=== PATIENT | female | born 1985 | race Two or more races ===

== ENCOUNTER 2016-10-03 10:21 | Emergency (ER) | payer OTHER ==
[2016-10-03 10:36] VITALS: BP 133/81
--- NOTE | 2016-10-03 11:51 | UC ---
Respiratory Complaint HPI - HPI Summary HPI Summary: SINUS CONGESTION AND COUGH FOR PAST WEEK, WAS SEEN AT [facility] ON Saturday09/28/16, DIAGNOSED WITH UPPER RESPIRATORY INFECTION. PATIENT DENIES ANY IMPROVEMENT IN SYMPTOMS SINCE THEN. PATIENT REQUESTING TEST, TOOK A TEST AT HOME AND AT HOSPITAL LAST WEEK , BOTH POSITIVE. REQUESTING A NOTE STATING SHE IS . - History of Current Complaint Chief Complaint: UCGeneralIllness Stated Complaint: SINUS ISSUE NEEDS PREG TESTING Time Seen by Provider: 10/03/16 11:09 Hx Obtained From: Patient Hx Last Menstrual Period: unknown Onset/Duration: Gradual Onset, Lasting Days, Still Present Timing: Constant Severity Initially: Moderate Severity Currently: Moderate Pain Intensity: 8 Pain Scale Used: 0-10 Numeric - Allergies/Home Medications Allergies/Adverse Reactions: Allergies Allergy/AdvReac Type Severity Reaction Status Date / Time Amoxicillin Allergy Hives/Diff. Verified 10/03/16 10:53 Breathing/I tching Azithromycin [From Zithromax] Allergy Hives/Diff. Verified 10/03/16 10:53 Breathing/I tching Cefaclor [From Ceclor] Allergy Hives/Diff. Verified 10/03/16 10:53 Breathing/I tching Erythromycin Allergy Hives/Diff. Verified 10/03/16 10:53 Breathing/I tching Penicillins [PCN] Allergy Hives/Diff. Verified 10/03/16 10:53 Breathing/I tching MACROLIDES Allergy Hives Uncoded 10/03/16 10:53 Home Medications: Home Medications Venlafaxine TAB (NF) [Effexor TAB (NF)] 225 mg PO DAILY 10/03/16 [History Confirmed 10/03/16] PMH/Surg Hx/FS Hx/Imm Hx Respiratory History: Asthma - Surgical History Surgical History: Yes Surgery Procedure, Year, and Place: INGUNIAL HERNIA REPAIR 1996. X3 - Family History Known Family History: Positive: Hypertension - Social History Alcohol Use: None Substance Use Type: None Smoking Status (MU): Light Every Day Tobacco Smoker Amount Used/How Often: 5 sig/day Review of Systems Constitutional: Negative ENT: Sore Throat, Nasal Discharge Respiratory: Cough Cardiovascular: Negative Gastrointestinal: Negative All Other Systems Reviewed And Are Negative: Yes Physical Exam Triage Information Reviewed: Yes Appearance: Well-Appearing, No Pain Distress, Well-Nourished Vital Signs: Initial Vital Signs Temp 97.6 F 10/03/16 10:34 Pulse 99 10/03/16 10:34 Resp 16 10/03/16 10:34 BP 133/81 10/03/16 10:34 Pulse Ox 100 10/03/16 10:34 Vital Signs Reviewed: Yes Eyes: Positive: Conjunctiva Clear ENT: Positive: Hearing grossly normal, Pharynx normal, TMs normal Neck: Positive: Supple, Nontender, No Lymphadenopathy Respiratory Exam: Normal Cardiovascular Exam: Normal Abdomen Description: Positive: Soft Musculoskeletal: Positive: No Edema Neurological: Positive: Alert Psychological: Positive: Age Appropriate Behavior Skin: Negative: rashes UC Diagnostic Evaluation - Laboratory O2 Sat by Pulse Oximetry: 100 Diagnostic Studies Comment: URINE HCG POSITIVE Respiratory Course/Dx - Differential Dx/Diagnosis Provider Diagnoses: 1. ACUTE URI. 2. Discharge - Discharge Plan Condition: Stable Disposition: HOME Prescriptions: Albuterol HFA INHALER* [Ventolin HFA Inhaler*] 2 puff INH Q4H PRN #1 mdi PRN Reason: Shortness Of Breath Vit W/ Ferrous Fumara [ Multi +Dha] 1 cap PO DAILY #30 cap Patient Education Materials: (ED), Upper Respiratory Infection (ED) Forms: *Gen. Provider Communication Referrals: Shannan Amaya MD [Primary Care Provider] - If Needed Shannan Oro MD [Medical Doctor] - As Soon As Possible Additional Instructions: YOUR RESPIRATORY INFECTION WILL LAST LONGER GIVEN THAT YOU ARE . SEEK FOLLOW-UP IF YOUR SYMPTOMS ARE WORSENING OR NOT IMPROVING OVER THE NEXT 1-2 WEEKS. USE ALBUTEROL INHALER NEEDED. GO DIRECTLY TO THE OB OFFICE FROM HERE TO SCHEDULE YOUR INITIAL VISIT WITH A DOCTOR OR TRACK HOE OPERATOR. START A VITAMIN. I LIKE THE NATURE MADE BRAND WITH [facility]HA IF YOU ARE USING OVER THE COUNTER MEDS. I HAVE ALSO SENT AN PRESCRIPTION TO YOUR PHARMACY IF YOU PREFER.
== END 2016-10-03 12:05 | disposition home or self-care (01) ==
LOC: UCEAST 10:21
DX: O26.899 Other specified pregnancy related conditions, unspecified trimester (principal); J06.9 Acute upper respiratory infection, unspecified; Z3A.00 Weeks of gestation of pregnancy not specified; J45.909 Unspecified asthma, uncomplicated; Z88.1 Allergy status to other antibiotic agents; Z88.0 Allergy status to penicillin; F17.210 Nicotine dependence, cigarettes, uncomplicated
CPT/HCPCS: 84702; 99212; G0463

== ENCOUNTER 2018-05-29 12:50 | Emergency (ER) | payer OTHER ==
[2018-05-29 13:03] VITALS: BP 130/89
--- NOTE | 2018-05-29 13:10 | UC ---
Lower Extremity/Ankle HPI - HPI Summary HPI Summary: The patient is a 33-year-old female that injured her right fourth toe when she stubbed it on a bed frame 4 days ago. She has had to alter her gait to bear weight. She has not had very much relief with ibuprofen. - History of Current Complaint Chief Complaint: UCLowerExtremity Stated Complaint: FOOT COMPLAINT Time Seen by Provider: 05/29/18 13:06 Hx Obtained From: Patient Hx Last Menstrual Period: 05/20/18 Onset/Duration: Sudden Onset Severity Initially: Severe Severity Currently: Severe Pain Intensity: 10 Pain Scale Used: 0-10 Numeric Aggravating Factor(s): Standing, Ambulation Alleviating Factor(s): Rest, OTC Meds Able to Bear Weight: Yes Feet (Multiple View): 1 - swelling/ecchymosis, 4th toe most swollen - Allergies/Home Medications Allergies/Adverse Reactions: Allergies Allergy/AdvReac Type Severity Reaction Status Date / Time amoxicillin Allergy Hives/Diff. Verified 05/29/18 13:39 Breathing/I tching azithromycin Allergy Hives/Diff. Verified 05/29/18 13:39 Breathing/I tching cefaclor Allergy Hives/Diff. Verified 05/29/18 13:39 Breathing/I tching erythromycin base Allergy Hives/Diff. Verified 05/29/18 13:39 Breathing/I tching Penicillins Allergy Hives/Diff. Verified 05/29/18 13:39 Breathing/I tching MACROLIDES Allergy Hives Uncoded 05/29/18 13:39 Home Medications: Home Medications Linaclotide [Linzess] 145 mcg PO DAILY 05/29/18 [History Confirmed 05/29/18] PMH/Surg Hx/FS Hx/Imm Hx Respiratory History: Asthma - Surgical History Surgical History: Yes Surgery Procedure, Year, and Place: INGUNIAL HERNIA REPAIR 1996. X4 - Family History Known Family History: Positive: Hypertension - Social History Alcohol Use: None Substance Use Type: None Smoking Status (MU): Light Every Day Tobacco Smoker Amount Used/How Often: 5 sig/day Review of Systems All Other Systems Reviewed And Are Negative: Yes Constitutional: Positive: Fatigue Skin: Positive: Negative Eyes: Positive: Negative ENT: Positive: Negative Respiratory: Positive: Negative Cardiovascular: Positive: Negative Gastrointestinal: Positive: Negative Genitourinary: Positive: Negative Motor: Positive: Negative Neurovascular: Positive: Negative Musculoskeletal: Positive: Decreased ROM, Edema, Myalgia Neurological: Positive: Negative Psychological: Positive: Negative Physical Exam Triage Information Reviewed: Yes Appearance: Well-Appearing, No Pain Distress, Well-Nourished Vital Signs: Initial Vital Signs Temp 97.4 F 05/29/18 12:58 Pulse 88 05/29/18 12:58 Resp 16 05/29/18 12:58 BP 130/89 05/29/18 12:58 Pulse Ox 100 05/29/18 12:58 Vital Signs Reviewed: Yes Eyes: Positive: Conjunctiva Clear ENT: Positive: Hearing grossly normal. Negative: Nasal congestion, Nasal drainage, Trismus, Muffled voice, Sinus tenderness, Uvula midline Neck: Positive: Supple, Nontender, No Lymphadenopathy Respiratory: Positive: Lungs clear, Normal breath sounds, No respiratory distress, No accessory muscle use Cardiovascular: Positive: RRR, No Murmur Musculoskeletal: Positive: Other: - see image. Negative: ROM Intact, Edema @ Neurological: Positive: Alert Psychological Exam: Normal Psychological: Positive: Decreased Age Appropriate Behavior Diagnostics - Radiology No standard instances Radiology Interpretation Completed By: Radiologist Summary of Radiographic Findings: Spiral fracture proximal phalanx of the fourth digit Lower Extremity Course/Dx - Differential Dx/Diagnosis Provider Diagnosis: Fracture of fourth toe, right, closed Discharge - Sign-Out/Discharge Documenting (check all that apply): Patient Departure All imaging exams completed and their final reports reviewed: Yes - Discharge Plan Condition: Stable Disposition: HOME Prescriptions: HYDROcodone/ACETAMIN 5-325 MG* [Nadeau 5-325 TAB*] 1 tab PO Q4H PRN #15 tab MDD 4 PRN Reason: Pain Ibuprofen TAB* [Motrin TAB*] 600 mg PO Q6H PRN #40 tab PRN Reason: Pain Patient Education Materials: Toe Fracture (ED) Referrals: Shannan Amaya MD [Primary Care Provider] - 2 Weeks (if not better) Additional Instructions: elevate elevate elevate use post op shoe crutches with non wt bearing may start bearing wt as tolerated recheck in 2-3 weeks if not markedly improved - Billing Disposition and Condition Condition: STABLE Disposition: Home
== END 2018-05-29 13:57 | disposition home or self-care (01) ==
LOC: UCEAST 12:50
DX: S92.511A Displaced fracture of proximal phalanx of right lesser toe(s), initial encounter for closed fracture (principal); F17.210 Nicotine dependence, cigarettes, uncomplicated; J45.909 Unspecified asthma, uncomplicated; Z88.1 Allergy status to other antibiotic agents; Z88.0 Allergy status to penicillin; W22.8XXA Striking against or struck by other objects, initial encounter; Y92.9 Unspecified place or not applicable
CPT/HCPCS: 99213; G0463